=== PATIENT | male | born 1985 | race Caucasian/White ===

== ENCOUNTER 2016-10-10 18:36 | Emergency (ER) | payer BC ==
[~2016-10-10] VITALS: Ht 172.7 cm; Wt 131.4 kg
[~2016-10-10 18:36] MED LIST: NAPROSYN500 MG PO
[2016-10-10 19:30] LABS: HEMATOCRIT 46.2 % (38.0-50.0); MCH 30.8 PG (29.0-34.0); MCHC 35.5 G/DL (30.0-36.0); MCV 86.8 FL (86-99); MEAN PLAT.VOLUME 11.3 uM^3 (9.0-12.4); PLATELET COUNT 193 K/uL (156-360); RBC DIS.WIDTH-SD 40.7 % (39-53); RED BLOOD COUNT 5.32 M/uL (4.00-5.50)
[2016-10-10 19:39] LABS: CHLORIDE 107 mEq/L (99-109); POTASSIUM 3.8 mEq/L (3.7-5.4); SODIUM 145 mEq/L (136-147)
[2016-10-10 19:40] LABS: GLUCOSE 89 mg/dL (70-99)
[2016-10-10 19:42] LABS: ANION GAP 10 MEQ/L (2-14)
[2016-10-10 19:44] LABS: GFR ESTIMATE (CALCULATED) > 59 mL/min/
[2016-10-10 19:45] LABS: UREA NITROGEN (BUN) 19 mg/dL (9-23)
[2016-10-10 19:53] LABS: TROP-I INTERPRETATION NEGATIVE; TROPONIN-I < 0.01 ng/mL (0.0-0.30)
[2016-10-10 20:55] LABS: TOTAL BILIRUBIN 0.5 mg/dL (0.0-1.0)
[2016-10-10 20:56] LABS: ALKALINE PHOSPHATASE 65 IU/L (3-129)
[2016-10-10 20:58] LABS: DIRECT BILIRUBIN 0.2 mg/dL (0.0-0.3)
[2016-10-10] MEDS ORDERED: MOTRIN600 MG PO (22:55)
[2016-10-10] MEDS ORDERED: PREDNISONE50 MG PO (22:55)
[2016-10-10 23:09] VITALS: BP 137/79
== END 2016-10-10 23:12 | disposition home or self-care (01) ==
LOC: EME 18:36
DX: R07.89 Other chest pain (principal); M79.602 Pain in left arm; R06.02 Shortness of breath; F17.200 Nicotine dependence, unspecified, uncomplicated
CPT/HCPCS: 71020; 80048; 80076; 84484; 85027; 93005; 99281; 99284